=== PATIENT | male | born 1940 | race Caucasian/White ===

== ENCOUNTER 2017-01-25 06:49 | Day surgery (SDC) | payer OTHER ==
[2017-01-25 07:54] LABS: INR 1.1; PROTIME 11.7 Seconds (9.2-11.7); PTT 28.7 Seconds (22.0-36.0)
[2017-01-25] MEDS ORDERED: ALBUMIN 25% IV ONE (10:00)
[2017-01-25 10:23] VITALS: BP 104/58
--- NOTE | 2017-01-25 14:10 | Diag Imaging Result Document ---
PROCEDURE NAME: US PARACENTESIS - 01/25/2017 ULTRASOUND-GUIDED PARACENTESIS: COMPARISON: 12/21/2016. TECHNIQUE: The risks and benefits of the procedure were discussed with the patient. All questions were answered. Written and verbal informed consent was obtained. Scanning demonstrated large ascites. The right lower quadrant was prepped and draped in sterile fashion. Anesthesia was achieved with injection of 7 mL of 1% lidocaine. The paracentesis catheter was advanced without difficulty until the return of ascites fluid. 4.7 L was withdrawn using evacuated bottles. The catheter was removed intact. The patient reported no symptoms from the procedure. IMPRESSION: Successful and uncomplicated ultrasound-guided paracentesis.
== END 2017-01-25 10:40 | disposition home or self-care (01) ==
LOC: US 06:49
PROVIDERS: ATTEND Internal Medicine Gastroenterology
DX: K74.60 Unspecified cirrhosis of liver (principal); R18.8 Other ascites; Z79.899 Other long term (current) drug therapy
CPT/HCPCS: 49083; 85610; 85730; P9047

== ENCOUNTER 2017-02-15 06:49 | Day surgery (SDC) | payer OTHER ==
[2017-02-15] MEDS ORDERED: ALBUMIN 25% IV ONE (07:45)
[2017-02-15 08:19] LABS: INR 1.18; PROTIME 12.5 Seconds (9.2-11.7); PTT 33.6 Seconds (22.0-36.0)
--- NOTE | 2017-02-15 10:32 | Diag Imaging Result Document ---
PROCEDURE NAME: US PARACENTESIS - 02/15/2017 ULTRASOUND-GUIDED PARACENTESIS: COMPARISON: 01/25/2017. FINDINGS: Risks, benefits, and alternatives were discussed with the patient, and informed consent was obtained. The patient was prepped and draped in sterile fashion and local anesthesia was achieved with 1% lidocaine solution. Using ultrasound guidance, a large-bore catheter was inserted into the peritoneal cavity on the right side. Approximately, 5.4 L of cloudy yellow white fluid was aspirated. There were no known complications. IMPRESSION: Technically successful ultrasound-guided paracentesis.
[2017-02-15 12:35] VITALS: BP 105/56
== END 2017-02-15 12:10 | disposition home or self-care (01) ==
LOC: OPS 06:49
PROVIDERS: ATTEND Internal Medicine Gastroenterology
DX: R18.8 Other ascites (principal); K74.60 Unspecified cirrhosis of liver; Z79.899 Other long term (current) drug therapy
CPT/HCPCS: 49083; 85610; 85730; P9047

== ENCOUNTER 2017-08-13 13:45 | Inpatient (IN) ==
[2017-08-13 14:54] LABS: URINE MICRO REVIEW NEEDED? NO; URINE SOURCE VOIDED
[2017-08-13 14:58] LABS: BILIRUBIN URINE NEGATIVE (NEGATIVE); BLOOD URINE NEGATIVE (NEGATIVE); COLOR YELLOW; GLUCOSE URINE NEGATIVE (NEGATIVE); LEUKOCYTES URINE NEGATIVE (NEGATIVE); NITRITE URINE NEGATIVE (NEGATIVE); PH URINE 5.5; PROTEIN URINE NEGATIVE (NEGATIVE); SP GRAVITY URINE 1.011; TURBIDITY URINE CLEAR (CLEAR); UROBILINOGEN URINE NORMAL (NORMAL)
[2017-08-13 15:03] LABS: UR EPITHELIAL CELLS <10 /HPF (<10); URINE BACTERIA NEGATIVE /HPF; URINE RBC <10 /HPF (<10); URINE WBC <10 /HPF (<10)
--- NOTE | 2017-08-13 15:59 | HISTORY AND PHYSICAL ---
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 He has had to have paracentesis probably every 2 weeks. Recently had a fistula around the umbilical area where peritoneal fluid started running out. We tried to put a bag around it, unsuccessful in keeping the colostomy bag on. Went to [facility] and had this peritoneal area sewed up. Since that time he has really been pretty weak and balance is poor. They brought him in because his confusion has gotten a lot worse in the last couple days. They deny any hard fever or chills but he has not been eating very well and as I stated this has made things confusing, he cannot walk. He fell. We were able to get him up. They have home health trying to help. PAST MEDICAL HISTORY: 1. Macular rash on his leg, pain and swelling years ago which resolved. 2. Allergic mucositis, seasonal. 3. History of osteoarthritis. 4. Carpal tunnel syndrome. Had surgery performed on 12/12/2000. 5. Synovitis of the right lateral midfoot. Received steroid injections. 6. Hospitalized for right middle lobe pneumonia in the past. 7. Rotator cuff surgery done on 05/18/2002. 8. Pedal edema, signs of left ventricular dysfunction. Echocardiogram done in January 2011 showed, he seemed to have good contractility, good left ventricular function. 9. CATHERINE liver disease with hepatic cirrhosis. Not a candidate for shunting and seems to be showing deterioration. Recent spontaneous fistula around his umbilicus and this was repaired surgically at [facility]. SOCIAL HISTORY: Born in [place], [place], lived during most of his life. He is , has 3 daughters I believe. FAMILY HISTORY: Father age 55 of myocardial infarction. Mother age 73 of blood clot. History heart trouble in both sides of family. History of cancer in paternal grandmother. Has sister with history of hypertension, and history of arthritis in mother. REVIEW OF SYSTEMS: He is not eating as well. He is much weaker and his balance is very poor. Recent spontaneous rupture of his peritoneal fistula. He denies abdominal pain. Stools are loose but no blood, no gross hematuria or dysuria, no focal neurologic changes, just more confusion. Unsteady on his feet and high risk to fall, in fact he fell today. No sign of fractures or lacerations. PHYSICAL EXAMINATION: Temperature 98.3 degrees, pulse 64, respirations 13, blood pressure 133/68. HEENT: Pupils are equal, round. CVP less than 6 cm. LUNGS: Clear in all lung luna. CARDIOVASCULAR: Regular rhythm and rate without murmur or S3. ABDOMEN: Soft. SKIN: Warm and dry. Height 5 feet 11 inches. Weight 175 pounds. He has trace to 1+ pitting edema ankle to mid camacho. Actually it is more trace. Abdomen with some ascites but it is not real tight right now. Recent incision or recent sewing up of periumbilical peritoneal fistula. LAB: Pending. ASSESSMENT AND PLAN: 1. Suspect hepatic encephalopathy. We will check ammonia level. Check liver enzymes, amylase, lipase. Will check his CBC. I do not see any sign of peritonitis at this time. We have been treating him for a urinary tract infection and so I will continue some Levaquin IV and will give him a little bit of fluid back. 2. We will check electrolytes and see where we are. This could be a component of his confusion as well, encephalopathy. 3. Nonalcoholic steatohepatitis, portal hypertension with chronic ascites. He may need to have paracentesis. We will see how he does. 4. Osteoarthritis. 5. Obesity. 6. History of diabetes I believe. We will follow, see how his sugar does. I think this hyperglycemia has been something fairly new. cc: Reji Ma MD
[2017-08-13] MEDS ORDERED: ZOFRAN IV PRN (18:28)
[2017-08-13 19:12] LABS: BASO% 0.5 % (0.0-0.8); EOS# 0.03 X1000 (0.0-0.7); EOS% 0.7 % (0.0-10.0); HEMATOCRIT 26.8 % (42.0-52.0); HEMOGLOBIN 8.3 g/dL (14.0-18.0); LYMPH# 0.34 X1000 (1.2-3.4); LYMPH% 8.3 % (20.5-51.1); MANUAL DIFF NEEDED? YES; MCH 22.8 PG (27-31); MCV 73.6 FL (81-99); MONO# 0.34 X1000 (0.11-0.59); MONO% 8.3 % (1.7-9.3); MPV 9.9 FL (7.4-10.4); NEUT% 82.2 % (42.2-75.2); PLT 140 X1000 (130-400); RBC 3.64 XMIL (4.7-6.1)
[2017-08-13 19:19] LABS: INR 1.29; PROTIME 13.8 Seconds (9.2-11.7); PTT 37.6 Seconds (22.0-36.0)
[2017-08-13 19:29] LABS: HYPOCHROM 2+; LYMPHS 11 % (21-51); MONO 2 % (1-9)
[2017-08-13 19:41] LABS: ALBUMIN 3.1 g/dL (3.5-5.0); POTASSIUM 4.5 mmol/L (3.5-5.1); TOTAL BILIRUBIN 1.01 mg/dL (0.20-1.00); TOTAL PROTEIN 5.2 g/dL (6.3-8.3)
[2017-08-13 19:49] LABS: FREE T4 1.28 ng/dL (0.93-1.70)
[2017-08-13] MEDS ORDERED: CALCIUM GLUCONATE 1 GM in NS 50 ML IV ONE (20:02)
[2017-08-13] MEDS: LEVAQUIN 500 MG/D5W 500 MG/100 ML IVPB IV SCH (21:53)
[2017-08-13] MEDS: LACTULOSE PO SCH (21:53)
[2017-08-13] MEDS: NS 1,000 ML IV SCH (21:53)
[2017-08-13] MEDS: PATIENT'S OWN MED PO SCH (21:54)
[2017-08-14] MEDS: NS 1,000 ML IV SCH ×2 (06:51→17:03)
--- NOTE | 2017-08-14 07:11 | Diag Imaging Result Doc PS360 ---
EXAM: CHEST-PORTABLE HISTORY: pneumonia TECHNIQUE: Erect AP portable at 0600 COMMENT: The right pleural effusion has diminished in volume since the previous study of 05/12/2017. There is less compressive atelectasis. IMPRESSION: Improved right pleural effusion. Electronically signed by Isael Powell 08/14/2017 7:08 AM
--- NOTE | 2017-08-14 07:59 | Diag Imaging Result Doc PS360 ---
EXAM: KUB ABDOMEN HISTORY: abdominal pain TECHNIQUE: KUB COMMENT: There is some small and large bowel gas throughout the abdomen. There is a large amount of stool in the rectum. Severe spondylosis is noted in the lumbar spine. There are atherosclerotic calcifications in the aorta and iliac arteries IMPRESSION: Nonspecific abdomen. The possibility of mild ileus cannot be excluded. Constipation. Electronically signed by Isael Powell 08/14/2017 7:56 AM
[2017-08-14] MEDS: PATIENT'S OWN MED PO SCH ×3 (08:46→17:02)
[2017-08-14] MEDS: VITAMIN B-1 PO SCH (08:48)
[2017-08-14] MEDS: PROTONIX PO SCH (08:48)
[2017-08-14] MEDS: ALDACTONE PO SCH (08:48)
[2017-08-14] MEDS: LACTULOSE PO SCH ×3 (08:48→17:02)
[2017-08-14] MEDS: ULTRAM PO PRN ×2 (11:41→23:46)
--- NOTE | 2017-08-14 14:35 | PROGRESS NOTE ---
DATE: 08/14/2017 SUBJECTIVE: He is much more alert and awake. He is complaining of some pain. His breathing is comfortable but he recognizes me and he knows he is in the hospital. He knows what year it is. Marked to change from yesterday on admission. PHYSICAL EXAMINATION: Vital Signs: Temperature 97.8 degrees, pulse 77, respirations 17, blood pressure 120/59. HEENT: The pupils are equal, round. Lungs: Clear in all lung luna. Cardiovascular: Regular rate without murmur or S3. Abdomen: Distended. Positive ascites. No tenderness. Urine output was about 2200 yesterday. Skin: Large areas of ecchymosis especially on his arms and legs. Lower extremities with ecchymosis and chronic venous stasis dermatosis. 2+ to 3+ pitting edema with some weeping in the left leg and some bullae appreciated. LABORATORY STUDIES: Reviewed from yesterday. Hemoglobin 8, hematocrit 28.6. Creatinine is 3.0. His transaminases were normal. Albumin 3.1. T4 and TSH look okay. Pro time 13.8 with an INR 1.29. ASSESSMENT AND PLAN: 1. Hepatic encephalopathy. He is improved clinically. He is able to take the lactulose. The nausea has resolved. Do not see any evidence of peritonitis. We are treating for a possible urinary tract infection. He is on IV Levaquin and we gave a little bit of fluid back which I think has helped. 2. Electrolytes stable. Liver enzymes are normal. Transaminase is normal. 3. Nonalcoholic steatohepatitis, portal hypertension, chronic ascites. I think he is okay right now but he gets paracentesis approximately every 2 weeks. We may want to pursue that before he is discharged. 4. Osteoarthritis. 5. Obesity. 6. Diabetes mellitus type 2. Actually watch his sugars. So far he has done pretty well. Not sure if he has true diabetes. 7. His is going to need more help and I think he is probably going to need to go to hospice care from here so we will pursue that. Dr. Maddox is his pipe cleaner. Will make sure he is consulted. cc: Reji Ma MD
[2017-08-14] MEDS: LEVAQUIN 500 MG/D5W 500 MG/100 ML IVPB IV SCH (21:38)
--- NOTE | 2017-08-15 05:49 | EKG Report ---
Test Performed on : 08/14/2017 06:33:00 AM Test Reason : chest pain Blood Pressure : / mmHG Vent. Rate : 080 BPM Atrial Rate : 080 BPM P-R Int : 244 ms QRS Dur : 078 ms QT Int : 400 ms P-R-T Axes : -18 047 051 degrees QTc Int : 461 ms Sinus rhythm. with sinus arrhythmia. with 1st degree AV block. Low voltage QRS Borderline ECG When compared with ECG of 13-AUG-2017 13:46, (Unconfirmed) Criteria for Septal infarct are no longer present Nonspecific T wave abnormality, improved in Inferior leads Confirmed by Abdirahman Steward MD ([id number]) on 08/17/2017 6:07:18 PM
[2017-08-15] MEDS: PROTONIX PO SCH ×2 (05:57→08:00)
[2017-08-15] MEDS: NS 1,000 ML IV SCH ×3 (05:57→19:35)
--- NOTE | 2017-08-15 08:01 | EKG Report ---
Test Performed on : 08/13/2017 1:46:37 PM Test Reason : No Order in [employer] Blood Pressure : / mmHG Vent. Rate : 075 BPM Atrial Rate : 067 BPM P-R Int : 238 ms QRS Dur : 072 ms QT Int : 418 ms P-R-T Axes : -76 034 019 degrees QTc Int : 466 ms Undetermined rhythm Low voltage QRS Septal infarct , age undetermined Abnormal ECG When compared with ECG of 01-JUN-2017 15:37, Current undetermined rhythm precludes rhythm comparison, needs review Septal infarct is now present Unconfirmed Result
[2017-08-15] MEDS: LACTULOSE PO SCH ×4 (09:25→21:30)
[2017-08-15] MEDS: ALDACTONE PO SCH (09:25)
[2017-08-15] MEDS: VITAMIN B-1 PO SCH (09:25)
[2017-08-15] MEDS: PATIENT'S OWN MED PO SCH ×3 (14:07→16:29)
--- NOTE | 2017-08-15 14:53 | PROGRESS NOTE ---
DATE: 08/15/2017 SUBJECTIVE: Mr. Lopez is feeling a little better. He does not like taking lactulose often but we will back it down to 30 mL twice a day. He is still got confusion but he is more awake and alert. He denies any pain, breathing comfortably, remains afebrile. OBJECTIVE: Vital signs: Temperature 98.1 degrees, pulse 103, respirations 18, blood pressure 105/53. Lungs: Are clear in all lung luna. Cardiovascular: Regular rhythm and rate without murmur or S3. Abdomen: Soft. Skin: Is warm and dry. Urine output is 1750 mL. LAB: Reviewed from blood sugars 76, 84, 93, 91. ASSESSMENT AND PLAN: 1. Hepatic encephalopathy which has improved. He is requesting we cut down the lactulose, we will try and cut down at twice a day 30 mL twice a day. 2. Electrolytes stable, liver enzymes are normal, transaminase is normal. 3. Nonalcoholic steatohepatitis, portal hypertension, chronic ascites and he reports that he feels better and has less heartburn and abdominal discomfort and he thinks is because we had held his Midrin so will continue to hold it for now, ask Dr. Maddox to help come over I think they are going to need more help at home and we will try and arrange hospice at home. Continue Aldactone 50 mg a day, thiamine think 100 mg daily, tramadol is getting for pain 50 mg q.6 hours, Lasix 40 mg twice a day, Protonix 40 mg a day. cc: Reji Ma MD
[2017-08-15] MEDS: LEVAQUIN 500 MG/D5W 500 MG/100 ML IVPB IV SCH (21:30)
--- NOTE | 2017-08-15 23:33 | CONSULTATION ---
DATE OF CONSULTATION: 08/15/2017 REFERRING PHYSICIAN: Dr. Ma. REASON FOR REFERRAL: Confusion, history of cirrhosis of the liver, history of hepatic encephalopathy. HISTORY OF PRESENT ILLNESS: This is a 76-year-old male well known to our practice with history of nonalcoholic steatohepatitis with cirrhosis. He has had to have frequent paracentesis usually every 2-3 weeks. At the end of June, he had a umbilical fistula where he had peritoneal fluid leaking from the umbilicus. He went to the emergency room at [facility].They tried putting a colostomy bag on it but it did not hold. He was able to get in with Dr. Blackman/Dr. Norton and they put several stitches in the peritoneal area. He was supposed to have a followup appointment today but the states that he had increasing confusion over the weekend. She brought him in to the hospital for further evaluation. Today on evaluation he is alert. states sometimes his confusion comes and goes. She does report that he had some issues with constipation. He had an abdominal x-ray on 2016 that showed possible ileus and constipation. He has been given lactulose and has had several bowel movements since his admission. states they have been having home health come for help. PAST MEDICAL HISTORY: 1. For CATHERINE/cirrhosis of the liver. He has been seen and evaluated at [facility]. He had recent spontaneous rupture of umbilicus that was sutured at [facility] the end of June. 2. Osteoarthritis. 3. Diabetes. 4. Sleep apnea. PAST SURGICAL HISTORY: Carpal tunnel surgery, shoulder surgery. ALLERGIES: Lyrica causing swelling. HOME MEDICATIONS: Midrin 3 times a day which has been held, Ultram 50 mg every 6 hours as needed, vitamin B daily, Aldactone 50 mg daily, Requip 1 mg 3 times a day, potassium 99 mg daily, Protonix 40 mg daily, lactulose 15 mL daily, Lasix 40 mg twice daily. SOCIAL HISTORY: He is . He has 3 children. REVIEW OF SYSTEMS: Per HPI. PHYSICAL EXAM: Vital Signs: Temperature 98.1 degrees, pulse 103, respirations 18, blood pressure 105/63. Generally: He is awake and alert. He is in no acute distress. He is sitting on the side of the bed. He answers questions appropriately at present time. HEENT: Normocephalic, atraumatic. Pupils equal, round, reactive to light. Sclerae nonicteric. Respiratory: Lung sounds essentially clear bilaterally. Cardiovascular: Regular rate and rhythm. Abdomen: Soft. He does have stitches at the umbilical area. Has a little bit of swelling around the umbilical area. Some distention although his abdomen is soft and nontender. DIAGNOSTIC RESULTS: Laboratory. Hematology. White count 4.09, hemoglobin 8.3 , hematocrit 26.8, MCV 73.6, platelet 140,000. Coagulation. Pro time 13.8, INR 1.29, PTT 37.6. Chemistry. Sodium 138, potassium 4.5, chloride 106, CO2 19, BUN 88, creatinine 3.0, calcium 7, total bilirubin 1.01, AST 19, ALT 11, alkaline phosphatase 75. Abdominal x-ray on showed small and large bowel gas throughout the abdomen and a large amount of stool in the rectum. He has had multiple bowel movements since the x-ray was done. ASSESSMENT AND PLAN: 1. Cirrhosis of the liver. 2. Hepatic encephalopathy. We will continue to monitor. Continue to monitor electrolytes. Continue lactulose. 3. Umbilical hernia rupture. Recommend to follow back at [facility] with Dr. Blackman and Dr. Norton. Patient had an appointment today. Recommended that they reschedule that. Patient states that he was started on Midrin but that has been discontinued because he was having nausea and increased reflux heartburn. I have talked with Dr. Maddox and talked with the about the possibility of going ahead and proceeding with paracentesis before he is discharged. Although the patient seems to have a soft abdomen and he is not having any shortness of breath at this time. If they do not want to proceed while in the hospital, we can schedule the paracentesis when needed as an outpatient. Again recommended to follow up at [facility]. We will continue to follow during this hospital course. Patient and voiced understanding of this plan. Thank you for this consultation. I have discussed this case with Dr. Maddox. Dictated by JAMEE Morrow for Vidal Maddox MD cc: JAMEE Wganer MD Allen J. Schmidt, MD [facility]
[2017-08-16] MEDS: ULTRAM PO PRN (00:58)
[2017-08-16] MEDS: PROTONIX PO SCH (06:44)
[2017-08-16] MEDS: NS 1,000 ML IV SCH ×2 (06:44→17:00)
[2017-08-16] MEDS: ALDACTONE PO SCH (08:49)
[2017-08-16] MEDS: VITAMIN B-1 PO SCH (08:49)
[2017-08-16] MEDS: PATIENT'S OWN MED PO SCH ×3 (08:49→16:28)
[2017-08-16] MEDS: LACTULOSE PO SCH ×2 (08:50→21:03)
[2017-08-16] MEDS ORDERED: ALBUMIN 25% IV ONE ×2 (10:18→12:45)
[2017-08-16 10:55] LABS: INR 1.23; PROTIME 13.1 Seconds (9.2-11.7); PTT 37.3 Seconds (22.0-36.0)
--- NOTE | 2017-08-16 11:31 | PROGRESS NOTE ---
DATE: 08/16/2017 SUBJECTIVE: Patient states he is feeling a little better. His states he is having drainage from the umbilical area. OBJECTIVE: Vital Signs: Temperature is 98.8 degrees, pulse 75, respirations 18 , blood pressure 111/61. Generally: Patient was resting and arouses easily. He was alert. Respiratory: Lung sounds essentially clear. Cardiovascular: Regular rate and rhythm. Abdomen : Distended. He does have a dressing over the umbilical area that is saturated. Abdomen is soft. DIAGNOSTIC RESULTS/LABORATORY: Hematology: White count 4.09, hemoglobin 8.3, hematocrit 26.8, MCV 73.6, platelet 140,000. Coagulation: Pro-time 13.1, INR 1.23, PTT 37.3: Chemistry: Sodium 138, potassium 4.5, chloride 106, CO2 19, BUN 88, creatinine 3.0, glucose 82, calcium 7.0, magnesium 2.0, total bilirubin 1.01. AST 19, ALT 11, alkaline phosphatase 75. ASSESSMENT AND PLAN: 1. Hepatic encephalopathy is improving. Continue lactulose and Xifaxan. 2. Cirrhosis of the liver, chronic ascites requiring frequent paracentesis. 3. Leakage from umbilical area. He had been to [facility] and had stitches placed. He is having some drainage. He was supposed to have an appointment with [facility] yesterday, but had to cancel because of this hospital admission. Patient's states she has talked with Dr. Barrios, and says that doctors here can remove the stitches when appropriate. We will plan for a paracentesis today. He will receive albumin 50 g IV with each liter removed. We will continue to follow and further plans will be made as needed during his hospital course. I have discussed this case with Dr. Maddox. Dictated by JAMEE Morrow for Vidal Maddox MD cc: JAMEE Wagner MD Allen J. Schmidt, MD MTDD
--- NOTE | 2017-08-16 12:44 | Diag Imaging Result Doc PS360 ---
EXAM: US PARACENTESIS HISTORY: Therapeutic/ascites/cirrhosis TECHNIQUE: Ultrasound-guided paracentesis COMPARISON: Several prior exams FINDINGS: Prior to the procedure I discussed the risk and benefits with the patient. Primary risks include: Bleeding, infection, liver injury, and bowel injury. The patient's questions were answered. The patient gave consent. Patient's signed the consent form. The largest fluid collection in the right lateral abdomen was localized with ultrasound. This area was cleaned and draped in the normal fashion. Lidocaine was used as a local anesthetic. A needle and catheter were advanced into the fluid on the first try without difficulty. The needle was withdrawn. Catheter was hooked to suction. Approximately 3 L of thin yellowish fluid were withdrawn. Catheter was then withdrawn. The patient had no complaints during or following the procedure. IMPRESSION: Ultrasound-guided paracentesis with no immediate postprocedural complications. Electronically signed by Abilio Lainez 08/16/2017 12:42 PM
--- NOTE | 2017-08-16 14:51 | EKG Report ---
Test Performed on : 08/16/2017 2:15:51 PM Test Reason : chest pain Blood Pressure : / mmHG Vent. Rate : 088 BPM Atrial Rate : 088 BPM P-R Int : 228 ms QRS Dur : 102 ms QT Int : 396 ms P-R-T Axes : 074 072 215 degrees QTc Int : 479 ms Sinus rhythm. with 1st degree AV block. Low voltage QRS ST \T\ T wave abnormality, consider inferolateral ischemia T wave inversion in Anterior leads Prolonged QT Abnormal ECG When compared with ECG of 14-AUG-2017 06:33, (Unconfirmed) QRS duration has increased ST now depressed in Lateral leads T wave inversion now evident in Inferior leads T wave inversion now evident in Anterolateral leads Confirmed by Abdirahman Steward MD ([id number]) on 08/17/2017 6:49:20 PM
[2017-08-16 17:53] LABS: CALCIUM 7.9 mg/dL (8.8-10.2); MAGNESIUM 1.9 mg/dL (1.5-2.7); POTASSIUM 4.5 mmol/L (3.5-5.1)
--- NOTE | 2017-08-16 18:37 | PROGRESS NOTE ---
DATE: 08/16/2017 SUBJECTIVE: Mr. Lopez was sleeping. He was easy to arouse. The family states he is doing a little better, but still had some confusion, although that has improved. He does not like taking lactulose. Seems to be breathing comfortably. They did a paracentesis, gael off about 3 L. He did have some leaking around the umbilicus where they had sewn it up, and his stitches need to be taken out there as well. Later on this afternoon, he developed some chest pain with significant EKG changes. Cardiology was asked to help. OBJECTIVE: Vital signs: Temp 97.4 degrees, pulse 89, respirations 18, blood pressure 96/52. HEENT: Pupils are equal and round. Lungs: Clear in all lung luna. Cardiovascular: Regular rhythm and rate, without murmur or S3. Abdomen: Soft. Ascites appreciated. Extremities: Chronic venous stasis discoloration. His edema is his is down. No edema on his legs at this time. DIAGNOSTICS: Blood sugar 78, 77, 144. EKG was done at 14:[address] depressed in lateral leads. T-wave inversion evident in inferior leads. T-wave inversion in the anterolateral leads. ASSESSMENT AND PLAN: 1. Hepatic encephalopathy, nonalcoholic steatohepatitis, cirrhosis. Continue his lactulose and Xifaxan. 2. Cirrhosis of the liver with chronic ascites. He will require frequent paracentesis. 3. Leakage from the umbilical area. [facility] had put some stitches in place, but still some drainage. The patient's talked with Dr. Barrios, and says the doctor said that we can remove the stitches, so maybe we can remove the stitches today or tomorrow. We did give him some albumin 50 g IV after 1 L removed. 4. Developed some chest pain. EKG with significant changes. Concerned about underlying cardiac ischemia. May need to move him to the [facility]. 5. Creatinine is 2.2, which is improved from 3.0 on arrival. 6. Underlying chronic kidney, but also suspect he may be approaching hepatorenal syndrome as well. Blood pressure is staying in the 80s to 110. REVIEW OF HIS ORDERS: I do not see anything to change at this time. cc: Reji Ma MD
--- NOTE | 2017-08-16 19:30 | CONSULTATION ---
DATE OF CONSULTATION: 08/16/2017 IMPRESSION: 1. Hypotension with associated chest discomfort and ST depression on ECG following therapeutic paracentesis. Blood pressure has improved with intravenous fluids and chest discomfort resolved. 2. 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 The patient has required numerous paracentesis for chronic recurrent ascites. 3. Chronic kidney disease. 4. Autonomic dysfunction and orthostatic hypotension. 5. 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 Patient has had this sutured, but has had some recurrent drainage of peritoneal fluid. 6. Previous type 2 diabetes mellitus. 7. Previous significant obesity. RECOMMENDATIONS: 1. Intravenous fluid resuscitation judiciously. 2. Echocardiography. 3. Patient had previously been on Midrin, but discontinued this just prior to admission because of nausea on the dose he was on. It sounds like he was on 15 mg 3 times a day. Will resume at 10 mg 3 times a day as tolerated. 4. Conservative cardiovascular management overall in light of patient's significant comorbidities. HISTORY: This 76-year-old, white male with past history of end-stage cirrhosis related to fatty liver disease with associated portal hypertension and recurrent ascites, autonomic dysfunction/orthostatic hypotension, and chronic kidney disease, was recently admitted with recurrent ascites and associated drainage from sutured periumbilical fistula. He underwent paracentesis today removing 3 L. Postprocedure he developed further lowering of his blood pressure with associated chest discomfort and some ST depression on ECG. Intravenous fluid administration was initiated. He had already received some albumin intravenously as well. His blood pressure improved and his chest discomfort resolved. He is not aware of any previous cardiac problems. He has had significant tendency for orthostatic hypotension. He had been on midodrine before, but discontinued this because of nausea. He previously was on 15 mg 3 times daily. PAST MEDICAL HISTORY: 1. Advanced cirrhosis related to fatty liver disease with associated portal hypertension and chronic recurrent ascites. 2. Chronic kidney disease. 3. Orthostatic hypotension/autonomic dysfunction. 4. Osteoarthritis. He is aware that he should not be taking nonsteroidal antiinflammatory medications. 5. Carpal tunnel syndrome with previous carpal tunnel release in 2000. 6. Past surgical history also includes rotator cuff repair in 2001. 7. Previous diabetes mellitus. 8. Previous significant obesity. 9. Obstructive sleep apnea. ALLERGIES: He is allergic or intolerant to Lyrica which causes worsening swelling. MEDICATIONS PRIOR TO ADMISSION: As listed. SOCIAL HISTORY: He is . 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 He does not smoke. FAMILY HISTORY: Negative for premature coronary disease. REVIEW OF SYSTEMS: Pulmonary: Negative. Gastrointestinal: Noteworthy for chronic recurrent ascites. Constitutional: Negative/noncontributory beyond history of present illness. Remainder of review of systems negative/noncontributory beyond history of present illness with 14 total systems reviewed. PHYSICAL EXAMINATION: General: Reveals a chronically ill-appearing, older white male in no distress. Vital Signs: Blood pressure 96/52, heart rate 89 and regular, oxygen saturation 100% on room air. HEENT: Extraocular muscles appear intact. Mucous membranes appear somewhat dry. Neck: Supple without jugular venous distention. There are no carotid bruits. Chest: Clear to auscultation. Cardiac Exam: Reveals a regular rate and rhythm without appreciable murmur or gallop. Abdomen: Soft. Bowel sounds are audible. There is no abdominal tenderness. Extremities: Demonstrate mild ankle edema bilaterally. Neurologic Exam: Reveals him to be alert and fully oriented. Speech is fluent. He moves all 4 extremities equally well. Skin: Warm and dry. Psychiatric: Reveals mood to be appropriate. DIAGNOSTIC STUDIES: ECG obtained 2 days ago on admission demonstrates sinus rhythm with sinus arrhythmia and first-degree AV block. Low voltage QRS demonstrated. ECG this afternoon demonstrates sinus rhythm, first-degree AV block, low voltage QRS and ST and T-wave abnormality, consider inferolateral ischemia. QT interval is borderline prolonged. LABORATORY DATA: On August 13 includes white blood cell count of 4.1, hematocrit 26.8, platelet count 140,000. ProTime 13.8, INR 1.3. BUN 88, creatinine 3.0. Lab today demonstrates BUN 48, creatinine 2.2, ProTime 13.1, INR 1.23. Troponin T is 0.132. cc: MD Reji Dunn MD
[2017-08-16] MEDS: PROAMATINE PO SCH (21:03)
[2017-08-16] MEDS: LEVAQUIN 500 MG/D5W 500 MG/100 ML IVPB IV SCH (21:03)
[2017-08-17] MEDS: NS 1,000 ML IV SCH (00:48)
[2017-08-17] MEDS: PROTONIX PO SCH (06:13)
--- NOTE | 2017-08-17 06:43 | EKG Report ---
Test Performed on : 08/17/2017 06:13:31 AM Test Reason : cp Blood Pressure : / mmHG Vent. Rate : 074 BPM Atrial Rate : 074 BPM P-R Int : 220 ms QRS Dur : 088 ms QT Int : 432 ms P-R-T Axes : -01 053 002 degrees QTc Int : 479 ms Sinus rhythm. with 1st degree AV block. Low voltage QRS Nonspecific T wave abnormality Prolonged QT Abnormal ECG When compared with ECG of 16-AUG-2017 14:15, (Unconfirmed) Nonspecific T wave abnormalities has replaced ST and T wave abnormalities in the anterolateral leads . Confirmed by Abdirahman Steward MD ([id number]) on 08/17/2017 7:01:27 PM
[2017-08-17 07:11] LABS: CALCIUM 8.1 mg/dL (8.8-10.2); MAGNESIUM 1.8 mg/dL (1.5-2.7); POTASSIUM 5.3 mmol/L (3.5-5.1)
[2017-08-17] MEDS: LACTULOSE PO SCH ×2 (08:22→21:05)
[2017-08-17] MEDS: VITAMIN B-1 PO SCH (08:22)
[2017-08-17] MEDS: PROAMATINE PO SCH ×3 (08:22→21:05)
[2017-08-17] MEDS: ALDACTONE PO SCH (08:22)
[2017-08-17] MEDS: PATIENT'S OWN MED PO SCH ×3 (08:23→21:04)
[2017-08-17] MEDS ORDERED: PROAMATINE PO SCH (09:00)
--- NOTE | 2017-08-17 09:36 | PROGRESS NOTE ---
DATE: 08/17/2017 SUBJECTIVE: Mr. Lopez feels better. He wants to go home. We need to get him out of bed. I also need to take his stitches out from around his umbilical surgery. When they closed his peritoneal fistula, he is breathing comfortably. He is eating well. His mind seems to be back down to baseline. OBJECTIVE: Vital signs: Temperature 98.7 degrees, pulse 78, respirations 18, blood pressure 98/55. Eyes: His pupils are equal and round. Lungs: Clear in all lung luna. Cardiovascular exam: Regular rhythm and rate without murmur or S3. Abdomen: Soft. Some ascites, but is soft, nontender, leaking from umbilicus clear yellow fluid. Urine output is 1300 mL. LABORATORY: Review of lab from today: Sodium 141, potassium 5.3, chloride 110, BUN 47, creatinine 2.1. Blood sugars are 126, 85 and 83. ASSESSMENT AND PLAN: 1. Advanced cirrhosis, fatty liver disease with portal hypertension. We will continue to need paracentesis. He had paracentesis yesterday. 2. Peritoneal fistula draining ascites fluid. I will take out the stitches today. 3. Orthostatic hypotension. Autonomic dysfunction. Seems to be a little better. 4. Osteoarthritis. 5. Diabetes mellitus type 2, at least in the past. Sugars look under good control, almost normal sugar control. 6. Previous significant obesity. 7. Obstructive sleep apnea and now with some chest pain. It appears he has some coronary ischemia, chest discomfort with ST depression on electrocardiogram following therapeutic paracentesis. We de give him some albumin, gave him back some fluid. He was on Midrin, but discontinued this because of nausea. I think cardiology likely to restart that back at 10 mg three times a day as tolerated. They would like to go home with hospice; see if we can get that set up and possibly he could go home tomorrow. Looking at his enzymes, troponin was 0.260. cc: Reji Ma MD
--- NOTE | 2017-08-17 15:09 | ECHO REPORT ---
ORDER DATE: 08/16/2017 INDICATIONS: Dyspnea. FINDINGS: 1. The right atrium appears normal in size. 2. Mild tricuspid regurgitation. RV systolic pressure of 44. 3. Normal RV size and systolic function. 4. Trace pulmonic insufficiency. 5. Mild left atrial enlargement at 4.8 cm. 6. No mitral valve prolapse. Mild mitral regurgitation. 7. Normal LV size, end-diastolic dimension of 4 cm. Normal wall thicknesses with a posterior and interventricular septal thickness 1.1 and 1.1 cm respectively. Normal LV systolic function. Estimated EF of 65% with normal wall motion. 8. Aortic valve opens well. No evidence of stenosis or insufficiency. 9. Aorta appears normal on visualized segments. 10. No pericardial effusion seen. cc: MD Yesenia Levin PA Allen J. Schmidt, MD
--- NOTE | 2017-08-17 16:45 | PROGRESS NOTE ---
DATE: 08/17/2017 SUBJECTIVE: Patient states he is feeling much better. He is wanting to go home. He is awake and alert. His family is at the bedside. His states he is still having some leakage from the umbilical area. There is a dressing in place. He had some problems after the paracentesis yesterday. He had chest pain. EKG was done and that showed some EKG changes. He was seen by cardiology. They have restarted the Midrin at a lower dose. He was started on that at [facility] but had to stop it because of nausea. OBJECTIVE: Vital Signs: Temperature 98.8 degrees, pulse 83, respirations 18, blood pressure 102/49. Generally: Patient is awake, alert, no acute distress. Respiratory : Lung sounds clear. Abdomen: Some ascites but it is soft and nontender. He does have a dressing over the umbilical area. He has stitches in the umbilical area that were placed at [facility]. Per , Dr. Barrois states that they can be removed here at the hospital by one of our physicians. I think Dr. Ma is planning on removing the stitches later today or tomorrow. LABORATORY: Hematology: White count 4.09, hemoglobin 8.3, hematocrit 26.8, MCV 73.6, platelet 140,000. Chemistry: Sodium 141, potassium 5.3, chloride 110, CO2 19, BUN 47, creatinine 2.1, glucose 83. ASSESSMENT AND PLAN: 1. Cirrhosis of the liver with portal hypertension. He has had problems with low blood pressure and at [facility] was started on Midrin but the patient had to stop it due to nausea. That has been restarted by cardiology at a lower dose. 2. Peritoneal fistula, umbilical area. He has stitches in place. They were supposed to have been removed this week at [facility] but per she states Dr. Barrios states that a doctor here can remove them. 3. Ascites. Patient had paracentesis yesterday with 3 L of fluid removed. He did receive albumin during the paracentesis. 4. Hepatic encephalopathy. Patient's mentation has improved. Continue lactulose and Xifaxan. We will continue to follow. Further plans will be made as needed. Hospice has been consulted and will assist the patient once he goes home. I have discussed this case with Dr. Maddox. Dictated by JAMEE Morrow for Vidal Maddox MD cc: JAMEE Wagner MD Allen J. Schmidt, MD [facility]
[2017-08-17] MEDS: LEVAQUIN 500 MG/D5W 500 MG/100 ML IVPB IV SCH (21:04)
[2017-08-18] MEDS: PROTONIX PO SCH (06:06)
[2017-08-18 06:19] LABS: MANUAL DIFF NEEDED? NO
[2017-08-18 06:36] LABS: EOS# 0.08 X1000 (0.0-0.7); EOS% 2.1 % (0.0-10.0); HEMATOCRIT 22.3 % (42.0-52.0); HEMOGLOBIN 6.7 g/dL (14.0-18.0); LYMPH# 0.29 X1000 (1.2-3.4); LYMPH% 7.7 % (20.5-51.1); MCH 23.2 PG (27-31); MCV 77.2 FL (81-99); MONO# 0.42 X1000 (0.11-0.59); MONO% 11.1 % (1.7-9.3); NEUT% 79.1 % (42.2-75.2); PLT 105 X1000 (130-400); RBC 2.89 XMIL (4.7-6.1)
[2017-08-18 07:18] LABS: ALBUMIN 3.2 g/dL (3.5-5.0); CALCIUM 7.2 mg/dL (8.8-10.2); MAGNESIUM 1.9 mg/dL (1.5-2.7); TOTAL BILIRUBIN 0.98 mg/dL (0.20-1.00); TOTAL PROTEIN 5.5 g/dL (6.3-8.3)
[2017-08-18] MEDS: VITAMIN B-1 PO SCH (08:46)
[2017-08-18] MEDS: ALDACTONE PO SCH (08:46)
[2017-08-18] MEDS: LACTULOSE PO SCH (08:46)
[2017-08-18] MEDS: PROAMATINE PO SCH ×3 (08:46→18:12)
[2017-08-18] MEDS: PATIENT'S OWN MED PO SCH ×3 (08:47→18:08)
[2017-08-18 09:04] LABS: URINE MICRO REVIEW NEEDED? NO; URINE SOURCE CATH
[2017-08-18 09:07] LABS: BILIRUBIN URINE NEGATIVE (NEGATIVE); BLOOD URINE SMALL (NEGATIVE); COLOR YELLOW; GLUCOSE URINE NEGATIVE (NEGATIVE); LEUKOCYTES URINE LARGE (NEGATIVE); NITRITE URINE NEGATIVE (NEGATIVE); PROTEIN URINE TRACE mg/dL (NEGATIVE); SP GRAVITY URINE 1.016; TURBIDITY URINE CLEAR (CLEAR); UR EPITHELIAL CELLS <10 /HPF (<10); URINE BACTERIA NEGATIVE /HPF; URINE CULTURE NEEDED? YES; URINE RBC <10 /HPF (<10); URINE WBC TNTC /HPF (<10); UROBILINOGEN URINE NORMAL (NORMAL)
--- NOTE | 2017-08-18 10:00 | PROGRESS NOTE ---
DATE: 08/17/2017 He feels better. He slept all night. Note that his hemoglobin is less than 7. We need to get the Hardin catheter out. We will give him 2 units of packed red blood cells in hopes that he can go home later on this afternoon. He has not had any further chest pain and I do not see any changes on his medications at this point. PHYSICAL EXAMINATION: Vital Signs: Temperature 97.9 degrees, pulse 76, respirations 16, blood pressure 88/42. Lungs: Clear in all lung luna. Cardiovascular: Regular rhythm and rate without murmur or S3. Abdomen: Soft. Skin: Warm and dry. Urine output was 700 mL. Our plan is to take Hardin catheter out, give him 2 units of packed red blood cells and see if we can get him home with hospice. cc: Reji Ma MD
--- NOTE | 2017-08-18 10:02 | DISCHARGE SUMMARY ---
ADMISSION DATE: 08/13/2017 DISCHARGE DATE: 08/18/2017 HISTORY: A 76-year-old with history of CATHERINE, hepatic liver cirrhosis, and portal hypertension, which is approaching end stage. He has had paracentesis roughly every 2 weeks. Recently had a peritoneal fistula, where fluid is running out around his umbilicus and we tried to put a colostomy bag over it, but it did not hold. So he went to [facility] and they had sewn that up. Presented to the hospital with confusion and more lethargy concerned about possible urinary tract infection. PAST MEDICAL HISTORY: 1. Macular rash and leg swelling years ago, which resolved. 2. Allergic mucositis, seasonal. 3. History of osteoarthritis. 4. Carpal tunnel syndrome. Had surgery performed on 12/12/2000. 5. Synovitis in the right lateral midfoot, and received steroid injections. 6. Hospitalized for right middle lobe pneumonia in the past. 7. Rotator cuff surgery done on 04/17/2002. 8. Pedal edema, signs of left ventricular dysfunction. Echocardiogram done in 2010 seemed a showed good contractility and good left ventricular function. 9. CATHERINE liver disease with hepatic cirrhosis, chronic ascites, and pedal edema. Followed at [facility]. He was not a candidate for a portal systemic shunt. HOSPITAL COURSE: Recently had a spontaneous fistula in the skin at about the umbilicus. We took his sutures out around the umbilicus on 08/17/2017. He showed steady improvement with reinserted with lactulose. He did not like taking it 3 times a day, so he is on 30 mg of lactulose twice a day. He is also on Xifaxan, and they would like to go home with the help of hospice. He was able to get up and ambulate with some pain therapy. His renal function continues to deteriorate. He has a low-grade anemia. Hematocrit 22 hemoglobin 6.7. But creatinine has come down at 2.5. I feel like we ought to try and give him 2 units of packed red blood cells to see if this will help and then plan to get him home with hospice. DISCHARGE MEDICATIONS: Lactulose 30 mL twice a day. We will stop his Levaquin, ProAmatine or Midodrine 10 mg p.o. t.i.d. Note, he was on 15, did not seem to tolerate, but we cut it down to 10 mg t.i.d., Protonix 40 mg p.o. daily, Aldactone 50 mg daily, vitamin B1 or thiamine 250 mg a day, Ultram 50 mg p.o. q.6 hours p.r.n. cc: Reji Ma MD
[2017-08-18] MEDS ORDERED: NS 500 ML ONE (13:14)
[2017-08-18 18:15] VITALS: BP 106/55
== END 2017-08-18 20:58 | disposition hospice, home (50) ==
LOC: SUPCPDRO → ED 13:45 → EDIPHOLD 15:59 → 3N 16:42
PROVIDERS: ADMIT Emergency Medicine; ATTEND Emergency Medicine